=== PATIENT | male | born 1930 | race African-American/Black ===

== ENCOUNTER 2016-06-30 07:21 | Observation (INO) | payer MEDICARE, BC ==
--- NOTE | ~2016-06-30 | DS ---
Discharge Summary [address] [place]. [address] NAME: MEG HARDING : 34 STATUS : DIS Haroon PAT#: [id number] AGE: 86 ADM/REG DATE : 06/30/16 MR#: [id number] REPORT SERV DATE: 07/03/16 DICTATED BY: CONNIE REBOLLAR DATE: 07/02/16 REPORT STATUS : Draft TRANSCRIBED BY: MODL DATE: 07/02/16 ADMISSION DATE: 06/30/2016 DISCHARGE DATE: 07/02/2016 REASON FOR ADMISSION: Flu. HISTORY OF PRESENT ILLNESS: Please refer Dr. Sandra Milligan' history and physical dated 06/30/2016 for complete details regarding the patient's admission. In brief, the patient was admitted to the Hospitalist Service for supportive care for influenza. HOSPITAL COURSE: The patient had an uncomplicated hospital course. He had tested positive for influenza B. Dr. Milligan admitted the patient, started him on Tamiflu. He was admitted to [address] [place] [address]. He continued to have a cough periodically throughout the hospitalization. He was not requiring any oxygen. He had been afebrile throughout the hospitalization. Lactic acid was 2 on admission and then 1 several hours later. He had a mildly elevated white blood cell count of 11,000, which went up to 13,[address] Milligan had started the patient on Rocephin and azithromycin. There was a question of a pneumonia on the chest x- ray. A repeat PA and lateral did not demonstrate any infiltrate, therefore, his antibiotics were stopped. The patient continued to request to stay in the hospital, as he was not feeling well. However, given the fact that his issues were to be managed at home, he was discharged home in stable condition. DISCHARGE DIAGNOSES: Influenza type B. No pneumonia. Atrial fibrillation, rate controlled on Xarelto. Glaucoma, on multiple eye drops. No congestive heart failure. History of coronary artery disease. PROCEDURES: Include chest x-ray. DISCHARGE MEDICATIONS: Include Tamiflu 75 mg twice a day for four more, amlodipine 10 mg once a day, atenolol 25 mg daily, amiodarone 100 mg daily, Lasix 40 mg daily, potassium chloride 10 mEq daily, Xarelto 20 mg at bedtime, loteprednol ophthalmic solution three times a day in both eyes, myrtillus cap 100 mg daily, lutein, Cosopt one drop twice a day in both eyes, Travatan one drop at bedtime in the right eye, Pred Forte one drop in the left eye, atropine one drop twice a day in the left eye, ofloxacin one drop four times a day in the left eye, nepafenac one drop three times a day in the left eye, Rapaflo 8 mg with breakfast. FOLLOWUP: The patient will follow up with PCP. THALIA/MARYA Connie Rebollar MD / [id number] Discharge Summary [address] [address] NAME: MEG HARDING : 34 STATUS : DIS Haroon PAT#: [id number] AGE: 86 ADM/REG DATE : 06/30/16 MR#: [id number] REPORT SERV DATE: 07/03/16 DICTATED BY: CONNIE REBOLLAR DATE: 07/02/16 REPORT STATUS : Draft TRANSCRIBED BY: MARYA DATE: 07/02/16 CC: Connie Rebollar MD
--- NOTE | ~2016-06-30 | HP ---
History And Physical [address] [place]. [address] NAME: MEG HARDING : 34 STATUS : ADM Haroon PAT#: [id number] AGE: 86 ADM/REG DATE : 06/30/16 MR#: [id number] REPORT SERV DATE: 06/30/16 DICTATED BY: FRED OSULLIVAN DATE: 06/30/16 REPORT STATUS : Draft TRANSCRIBED BY: MODL DATE: 06/30/16 DATE OF ADMISSION: 06/30/2016 CHIEF COMPLAINT: Cough. HISTORY OF PRESENT ILLNESS: The patient is a very pleasant, 86-year-old -[place] male. He reports for the last two days, he has had cough and congestion. He has not had any documented fevers but has had some sweats. He has not had chills. He had some mild diarrhea. No abdominal pain. No chest pain. He did receive a flu vaccine this year. He just felt so poor and weak that he really thought he needed to come to the ER. He has been mildly short of breath. Previous to that, he felt well. PAST MEDICAL HISTORY: Positive for 1. 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 2. Congestive heart failure. 3. Atrial fibrillation, on chronic anticoagulation. 4. Glaucoma. 5. Coronary artery disease. 6. Hypertension. 7. Diverticulitis. 8. Enlarged prostate. SOCIAL HISTORY: He does not smoke or drink. He is . FAMILY HISTORY: Positive for CAD. ALLERGIES: ALPHAGAN DROPS AND ASPIRIN. PAST SURGICAL HISTORY: He has had a pacemaker placement, valve replaced with a tissue valve, cataract surgery, surgery for glaucoma, and hemorrhoid surgery. HOME MEDICATIONS: Reviewed and attached. REVIEW OF SYSTEMS: Full 10-point review of systems obtained. Pertinent positives are mentioned in the HPI. PHYSICAL EXAMINATION: VITAL SIGNS: I repeated his temperature, it is 98.9, sats 100% on room air, blood pressure 154/70, pulse 64, and respiratory rate 14. GENERAL: Well-developed -[place] male, in no apparent distress. HEENT: Normocephalic, atraumatic. Throat is clear. NECK: Supple. HEART: Regular rate and rhythm with a 2/6 murmur. LUNGS: Grossly clear. ABDOMEN: Soft, nontender, and nondistended. EXTREMITIES: Warm and dry. Skin is intact. No rash or lesions. Pulses are 2+ at the History And Physical [address] [address] NAME: MEG HARDING : 34 STATUS : ADM Haroon PAT#: [id number] AGE: 86 ADM/REG DATE : 06/30/16 MR#: [id number] REPORT SERV DATE: 06/30/16 DICTATED BY: FRED OSULLIVAN DATE: 06/30/16 REPORT STATUS : Draft TRANSCRIBED BY: MARYA DATE: 06/30/16 feet. LABORATORY AND X-RAY STUDIES: Flu swab is positive for flu B. Basic metabolic panel is essentially normal with glucose of 115. LFTs are normal. CBC: White count is 11.3, H and H 13.5 and 39.5, and platelet count is 185. Chest x-ray, to me, I do not see an obvious pneumonia. There is a question of right middle lobe pneumonia according to the ER physician. Lactate is 2. EKG shows a paced rhythm. ASSESSMENT/PLAN: 1. Flu influenza. Some of his symptoms are quite consistent with flu. He does not have documented fever. No myalgias. No sore throat, but he has had some sweats. I suspect he could have had a fever and he has some respiratory symptoms. I am going to cover him with Tamiflu. Treat him symptomatically. 2. Question of pneumonia. There was a question of pneumonia by the ER. He does have a slight white count. I am going to repeat his chest x-ray, the PA and lateral, in the morning. I am going to culture his blood and sputum. Obtain a procalcitonin. We will cover him overnight with Rocephin and Zithromax. If his PA and lateral look okay, we will stop the antibiotics. We will provide some p.r.n. DuoNeb. 3. History of atrial fibrillation. Continue home Xarelto. Currently in a paced rhythm. 4. History of glaucoma. He can use his home drops. He just had surgery on his left eye. 5. History of CHF. Watch carefully for any signs of volume overload. 6. History of coronary artery disease. 7. Deep venous thrombosis prophylaxis. He is already fully anticoagulated. 8. Disposition. Pending above. We will place him in observation. I suspect he could go home tomorrow unless something changes. KLJ/MODL Fred Osullivan M.D. / [id number] CC: MD Raudel Borrero M.D.
[2016-06-30 07:13] LABS: INFLUENZA A SCREEN NEGATIVE (NEGATIVE); INFLUENZA B SCREEN POSITIVE (NEGATIVE)
[~2016-06-30 07:21] MED LIST: ATEN25 PO; AZOPT OPH; C5 PO; CLARIT10 PO; COSOPT OPH; CYANO1000T PO; ECONOPRED PL1 % OPH; FISH-EPA1000 MG PO; HYT2 PO; LOZOLTAB PO; NORV10 PO; PACERONE200 MG PO; PRADAXA150 MG PO; TRAVATAN OPH; TRAVATAN Z0.004 % OPH; ZESTRIL20 MG PO; ZINC
[2016-06-30 07:28] LABS: HEMOGLOBIN 13.5 g/dL (13.6-17.8); MEAN CORPUSCULAR HEMOGLOB 31.6 pg (26.0-34.0); MEAN CORPUSCULAR VOLUME 92.5 fL (80-100); MEAN PLATELET VOLUME 9.7 fL (9.2-13.0); PLATELET COUNT 185 10/3/uL (150-400); RED CELL COUNT 4.27 10/6/uL (4.7-6.1); WHITE BLOOD CELLS 11.3 10/3/uL (4.5-10.5)
[2016-06-30 07:30] LABS: HEMATOCRIT 39.5 % (40.0-51.0); MEAN CORPUS HGB CONC 34.2 g/dL (32.0-36.0)
[2016-06-30 07:33] LABS: MANUAL DIFF YES %
[2016-06-30 07:43] LABS: A/G RATIO 0.8 (0.7-1.9); ALBUMIN 3.2 G/DL (3.5-5.0); ALKALINE PHOSPHATASE 68 U/L (45-117); BUN (BLOOD UREA NITROGEN) 13 MG/DL (6-23); CHLORIDE, SERUM 102 MMOL/L (96-112); CO2 (CARBON DIOXIDE) 29 MMOL/L (24-34); CREATININE 0.89 MG/DL (0.70-1.30); GFR AFRICAN AMERICAN 91 ML/MIN (>=60); GFR NON AFRICAN AMERICAN 79 ML/MIN (>=60); GLOBULIN 3.9 G/DL (2.5-4.1); GLUCOSE, SERUM 115 MG/DL (60-99); POTASSIUM, SERUM 4.2 MMOL/L (3.5-5.3); SGOT(AST) 33 U/L (5-40); SGPT(ALT) 17 U/L (5-65); SODIUM, SERUM 140 MMOL/L (135-148); TOTAL BILIRUBIN 0.8 MG/DL (0-1.2); TOTAL PROTEIN 7.1 G/DL (6.0-8.5)
[2016-06-30 07:52] LABS: ER DIFF TAT 0 Hrs 28 Mins; LYMPHOCYTES 40 %; LYMPHOCYTES ABSOLUTE (CALC) 4.52 10/3/uL (0.67-4.30); MONOCYTES 5 %; MONOCYTES ABSOLUTE (CALC) 0.57 10/3/uL (0.21-1.20); NEUTROPHILS ABSOLUTE (CALC) 6.22 10/3/uL (2.02-8.40); PLATELET ESTIMATE ADQ (ADEQUATE); RBC MORPHOLOGY NORM (NORMAL); SEGMENTED NEUTROPHIL (0) 55 %; TOTAL NUCLEATED CELLS 100
[2016-06-30] MEDS ORDERED: NORV10 PO (08:58)
[2016-06-30] MEDS ORDERED: ATEN25 PO (08:58)
[2016-06-30] MEDS ORDERED: L40 PO (09:00)
[2016-06-30] MEDS ORDERED: PACERONE100 MG PO (09:00)
[2016-06-30] MEDS ORDERED: KLOR-CON 1010 MEQ PO (09:00)
[2016-06-30] MEDS ORDERED: XARELTO20 MG PO (09:01)
[2016-06-30] MEDS ORDERED: AMOXIL500C PO (09:01)
[2016-06-30] MEDS ORDERED: BILBERRY100 MG PO (09:02)
[2016-06-30] MEDS ORDERED: LUTEIN PO (09:02)
[2016-06-30] MEDS ORDERED: LOTEMAX OPH SUSP5 ML OPH (09:02)
[2016-06-30] MEDS ORDERED: TRUSOPT2 % OPH (09:03)
[2016-06-30] MEDS ORDERED: COSOPT OPH (09:03)
[2016-06-30] MEDS ORDERED: TRAVATAN Z OPH (09:04)
[2016-06-30] MEDS ORDERED: PREDFORTE OPH (09:05)
[2016-06-30] MEDS ORDERED: ATROPINE 1% OPH (09:06)
[2016-06-30] MEDS ORDERED: OCUFLOX OPH (09:06)
[2016-06-30] MEDS ORDERED: NEVANAC OPH (09:07)
[2016-06-30] MEDS ORDERED: RAPAFLO8 MG PO (09:08)
[2016-06-30 11:38] LABS: PROCALCITONIN <0.05 ng/mL (<0.5)
[2016-07-01 07:05] LABS: HEMATOCRIT 39.1 % (40.0-51.0); HEMOGLOBIN 13.3 g/dL (13.6-17.8); MEAN CORPUSCULAR HEMOGLOB 31.1 pg (26.0-34.0); MEAN CORPUSCULAR VOLUME 91.4 fL (80-100); MEAN PLATELET VOLUME 9.9 fL (9.2-13.0); PLATELET COUNT 183 10/3/uL (150-400); RED CELL COUNT 4.28 10/6/uL (4.7-6.1); WHITE BLOOD CELLS 13.6 10/3/uL (4.5-10.5)
[2016-07-01 07:08] LABS: MANUAL DIFF YES %
[2016-07-01 07:12] LABS: BUN (BLOOD UREA NITROGEN) 17 MG/DL (6-23); CHLORIDE, SERUM 103 MMOL/L (96-112); CO2 (CARBON DIOXIDE) 28 MMOL/L (24-34); CREATININE 0.77 MG/DL (0.70-1.30); GFR AFRICAN AMERICAN 97 ML/MIN (>=60); GFR NON AFRICAN AMERICAN 83 ML/MIN (>=60); GLUCOSE, SERUM 127 MG/DL (60-99); POTASSIUM, SERUM 3.8 MMOL/L (3.5-5.3); SODIUM, SERUM 139 MMOL/L (135-148)
[2016-07-01 07:26] LABS: LYMPHOCYTES 26 %; LYMPHOCYTES ABSOLUTE (CALC) 3.54 10/3/uL (0.67-4.30); MONOCYTES 16 %; MONOCYTES ABSOLUTE (CALC) 2.18 10/3/uL (0.21-1.20); NEUTROPHILS ABSOLUTE (CALC) 7.89 10/3/uL (2.02-8.40); PLATELET ESTIMATE ADQ (ADEQUATE); RBC MORPHOLOGY NORM (NORMAL); SEGMENTED NEUTROPHIL (0) 58 %; SMUDGE CELLS OCC; TOTAL NUCLEATED CELLS 100
[2016-07-02 09:51] LABS: BUN (BLOOD UREA NITROGEN) 19 MG/DL (6-23); CALCIUM, SERUM 7.6 MG/DL (8.5-10.4); CHLORIDE, SERUM 102 MMOL/L (96-112); CO2 (CARBON DIOXIDE) 29 MMOL/L (24-34); CREATININE 0.88 MG/DL (0.70-1.30); GFR AFRICAN AMERICAN 91 ML/MIN (>=60); GFR NON AFRICAN AMERICAN 79 ML/MIN (>=60); GLUCOSE, SERUM 106 MG/DL (60-99); POTASSIUM, SERUM 3.4 MMOL/L (3.5-5.3); SODIUM, SERUM 138 MMOL/L (135-148)
[2016-07-02] MEDS ORDERED: TAMIFLU PO (14:44)
== END 2016-07-02 18:01 | disposition home or self-care (01) ==
LOC: ER 07:21 → 7NO 09:28
PROVIDERS: Internal Medicine; Nurse Practitioner Acute Care
DX: J10.1 Influenza due to other identified influenza virus with other respiratory manifestations (principal); I48.91 Unspecified atrial fibrillation; I25.10 Atherosclerotic heart disease of native coronary artery without angina pectoris; I11.0 Hypertensive heart disease with heart failure; I50.9 Heart failure, unspecified; H40.9 Unspecified glaucoma; N40.0 Benign prostatic hyperplasia without lower urinary tract symptoms; Z79.899 Other long term (current) drug therapy; Z79.01 Long term (current) use of anticoagulants; Z82.49 Family history of ischemic heart disease and other diseases of the circulatory system; Z88.8 Allergy status to other drugs, medicaments and biological substances; Z95.0 Presence of cardiac pacemaker; Z98.890 Other specified postprocedural states; Z95.1 Presence of aortocoronary bypass graft; Z98.41 Cataract extraction status, right eye; Z98.42 Cataract extraction status, left eye
CPT/HCPCS: 71010; 71020; 80048; 80053; 83605; 84132; 84145; 85025; 87040; 87205; 87804; 93005; 94640; 96374; 96375; 99285; A9270-GY; G0378; J0456; J1956; J2930